=== PATIENT | female | born 1990 | race Caucasian/White ===

== ENCOUNTER 2018-12-06 08:44 | Emergency (ER) | payer OTHER ==
[~2018-12-06] VITALS: Ht 157.5 cm; Wt 79.4 kg
[2018-12-06 08:45] VITALS: TEMP 98.2
[2018-12-06 11:29] VITALS: BP 116/93; PULSE 80
== END 2018-12-06 11:30 | disposition home or self-care (01) ==
LOC: COL.ER 08:44
DX: F07.81 Postconcussional syndrome (principal); F32.9 Major depressive disorder, single episode, unspecified; F41.9 Anxiety disorder, unspecified; E11.9 Type 2 diabetes mellitus without complications; Z79.84 Long term (current) use of oral hypoglycemic drugs
CPT/HCPCS: J1200; J1885; J2765

== ENCOUNTER 2018-12-17 08:48 | Emergency (ER) | payer OTHER ==
[~2018-12-17] VITALS: Ht 157.5 cm; Wt 78.2 kg
[2018-12-17 08:54] VITALS: BP 134/88; TEMP 97.7
[2018-12-17] MEDS ORDERED: NOVOLOG 100U100 U/M1 SQ (09:57)
[2018-12-17] MEDS ORDERED: LANTUS100 U/ML SQ ×2 (09:57→09:58)
[2018-12-17] MEDS ORDERED: MULTI VITAMINS1 TAB PO (09:58)
[2018-12-17] MEDS ORDERED: MIRENA52 MG IY (10:02)
[2018-12-17 10:10] LABS: BASO # 0.1 (0.0-0.2); BASO % 0.7 % (0.0-2.0); EOS # 0.1 (0.0-0.7); EOS % 1.4 % (0-4.0); GRAN # 6.9 (1.4-6.5); GRAN % 68.4 % (42.2-75.2); HEMATOCRIT 45.8 % (37.0-47.0); HEMOGLOBIN 15.6 g/dl (12.5-16.0); LYMPH # 2.3 (1.2-3.4); LYMPH % 22.5 % (20.0-51.0); MEAN CELL VOLUME 85 fl (80.0-100.0); MEAN CORPUSCULAR HEMOGLOBIN 29 pg (27.0-31.0); MEAN CORPUSCULAR HGB CONC 34 g/dl (33.0-37.0); MEAN PLATELET VOLUME 11.1 fl (7.4-10.4); MONO # 0.7 (0.1-0.6); MONO % 6.7 % (1.7-9.3); PLATELET COUNT 368 K/mm3 (130-400); RED BLOOD COUNT 5.37 M/mm3 (4.10-5.30); REDCELL DISTRIBUTION WIDTH-CV 12.2 % (11.5-14.5)
[2018-12-17 10:21] LABS: ALBUMIN 4.5 gm/dL (3.5-5.0); BILIRUBIN,TOTAL 0.6 mg/dL (0.0-1.0); CALCIUM 9.6 mg/dL (8.4-10.2); CREATININE, serum 0.5 (0.52-1.25); POTASSIUM 3.8 mmol/L (3.4-5.0); TOTAL PROTEIN 8.2 gm/dL (6.4-8.2)
[2018-12-17 11:37] LABS: COLLECTION METHOD CLEAN CATCH
[2018-12-17 11:45] LABS: MUCOUS Present /lpf; PH 6 (5-8); URINE APPEARANCE Hazy; URINE BACTERIA Rare /hpf; URINE BILIRUBIN Negative (NEGATIVE); URINE BLOOD Negative (NEGATIVE); URINE COLOR Yellow; URINE GLUCOSE 3+ (NEGATIVE); URINE KETONE 1+ (NEGATIVE); URINE LEUKOCYTE ESTERASE 1+ (NEGATIVE); URINE NITRATE Negative (NEGATIVE); URINE PROTEIN(semi-quant) 2+ (NEGATIVE); URINE UROBILINOGEN Negative (NEGATIVE)
[2018-12-17] MEDS ORDERED: DIFLUCAN150 MG PO (12:27)
[2018-12-17] MEDS ORDERED: GLUCOPHAGE1000 MG PO (12:27)
[2018-12-17] MEDS ORDERED: MACROBID 1100 MG/CAP PO (12:28)
[2018-12-17 12:37] VITALS: PULSE 94
== END 2018-12-17 12:38 | disposition home or self-care (01) ==
LOC: COL.ER 08:48
PROVIDERS: Nurse Practitioner Primary Care
DX: B37.3 Candidiasis of vulva and vagina (principal); L30.4 Erythema intertrigo; N30.90 Cystitis, unspecified without hematuria; E11.9 Type 2 diabetes mellitus without complications; Z87.42 Personal history of other diseases of the female genital tract

== ENCOUNTER 2019-10-09 12:39 | Outpatient (RCR) | payer OTHER ==
[~2019-10-09 12:39] MED LIST: DIFLUCAN150 MG PO; GLUCOPHAGE1000 MG PO; LANTUS100 U/ML SQ; MACROBID 1100 MG/CAP PO; MIRENA52 MG IY; MULTI VITAMINS1 TAB PO; NOVOLOG 100U100 U/M1 SQ; PHENERGAN 25 TA25 MG PO; PRINIVIL5 MG PO; ZOFRAN 4MG T4 MG/TAB PO
== END 2019-10-28 12:39 | disposition home or self-care (01) ==
LOC: WSOH 12:39
DX: S29.012S Strain of muscle and tendon of back wall of thorax, sequela (principal); R16.0 Hepatomegaly, not elsewhere classified; E11.9 Type 2 diabetes mellitus without complications; F41.9 Anxiety disorder, unspecified; L40.9 Psoriasis, unspecified; Y99.0 Civilian activity done for income or pay

== ENCOUNTER → 2019-10-11 | Outpatient (CLI) | payer OTHER | LOC: COL.RAD 07:44 | DX: R10.11 Right upper quadrant pain (principal) | CPT/HCPCS: A9537; J2805 ==

== ENCOUNTER 2020-08-14 11:19 | Emergency (ER) | payer MEDICAID ==
[~2020-08-14] VITALS: Ht 157.5 cm; Wt 77.3 kg
[2020-08-14 11:26] VITALS: BP 123/85; TEMP 96.8
[2020-08-14 12:53] LABS: COLLECTION METHOD CLEAN CATCH
[2020-08-14 12:56] LABS: BASO # 0.1 (0.0-0.2); BASO % 0.6 % (0.0-2.0); EOS # 0.1 (0.0-0.7); EOS % 1.2 % (0-4.0); GRAN # 6.9 (1.4-6.5); GRAN % 70.4 % (42.2-75.2); HEMATOCRIT 43.2 % (37.0-47.0); HEMOGLOBIN 14.9 g/dl (12.5-16.0); LYMPH # 2.1 (1.2-3.4); LYMPH % 21.3 % (20.0-51.0); MEAN CELL VOLUME 84 fl (80.0-100.0); MEAN CORPUSCULAR HEMOGLOBIN 29 pg (27.0-31.0); MEAN CORPUSCULAR HGB CONC 35 g/dl (33.0-37.0); MONO # 0.6 (0.1-0.6); MONO % 6.3 % (1.7-9.3); PLATELET COUNT 324 K/mm3 (130-400); RED BLOOD COUNT 5.17 M/mm3 (4.10-5.30); REDCELL DISTRIBUTION WIDTH-CV 12.1 % (11.5-14.5)
[2020-08-14 13:01] LABS: MUCOUS Present /lpf; PH 5 (5-8); URINE APPEARANCE Cloudy; URINE BACTERIA Rare /hpf; URINE BILIRUBIN Negative (NEGATIVE); URINE BLOOD 3+ (NEGATIVE); URINE COLOR Yellow; URINE GLUCOSE 3+ (NEGATIVE); URINE KETONE Trace (NEGATIVE); URINE LEUKOCYTE ESTERASE 2+ (NEGATIVE); URINE NITRATE Negative (NEGATIVE); URINE PROTEIN(semi-quant) Negative (NEGATIVE); URINE UROBILINOGEN Negative (NEGATIVE)
[2020-08-14 13:08] LABS: ALBUMIN 4.2 gm/dL (3.5-5.0); BILIRUBIN,TOTAL 0.4 mg/dL (0.0-1.0); CALCIUM 9.6 mg/dL (8.4-10.2); CREATININE, serum 0.47 (0.52-1.25); POTASSIUM 3.4 mmol/L (3.4-5.0); TOTAL PROTEIN 7.4 gm/dL (6.4-8.2)
[2020-08-14] MEDS ORDERED: MACROBID 1100 MG/CAP PO (14:24)
[2020-08-14] MEDS ORDERED: DIFLUCAN150 MG PO (14:24)
[2020-08-14 14:33] VITALS: PULSE 97
== END 2020-08-14 14:33 | disposition home or self-care (01) ==
LOC: COL.ER 11:19
PROVIDERS: Nurse Practitioner
DX: O20.9 Hemorrhage in early pregnancy, unspecified (principal); O23.41 Unspecified infection of urinary tract in pregnancy, first trimester; B37.3 Candidiasis of vulva and vagina; E11.9 Type 2 diabetes mellitus without complications; Z88.6 Allergy status to analgesic agent; Z3A.00 Weeks of gestation of pregnancy not specified; Z79.84 Long term (current) use of oral hypoglycemic drugs

== ENCOUNTER 2021-02-01 15:40 | Emergency (ER) | payer MEDICAID ==
[~2021-02-01] VITALS: Ht 157.5 cm; Wt 75.0 kg
[2021-02-01 15:47] VITALS: BP 144/82; TEMP 98.2
[2021-02-01] MEDS ORDERED: NORCO 325 MG-51 TAB PO (16:09)
[2021-02-01 16:27] VITALS: PULSE 89
== END 2021-02-01 16:28 | disposition home or self-care (01) ==
LOC: COL.ER 15:40
DX: H60.91 Unspecified otitis externa, right ear (principal); E11.9 Type 2 diabetes mellitus without complications; Z88.6 Allergy status to analgesic agent; Z79.84 Long term (current) use of oral hypoglycemic drugs

== ENCOUNTER 2021-02-06 08:01 | Emergency (ER) | payer MEDICAID ==
[~2021-02-06] VITALS: Ht 157.5 cm; Wt 74.5 kg
[~2021-02-06 08:01] MED LIST changes: +NORCO 325 MG-51 TAB PO
[2021-02-06 08:11] VITALS: BP 115/79; TEMP 98.1
[2021-02-06] MEDS ORDERED: GLUCOPHAGE1000 MG PO (08:33)
[2021-02-06] MEDS ORDERED: NOVOLOG FLEX100 U/ML SQ (08:33)
[2021-02-06] MEDS ORDERED: LANTUS SOLOS100 U/ML SQ (08:35)
[2021-02-06] MEDS ORDERED: CIPRO 500MG TA500 MG PO (08:36)
[2021-02-06] MEDS ORDERED: NORCO 325 MG-51 TAB PO (08:36)
[2021-02-06 08:45] VITALS: PULSE 99
== END 2021-02-06 08:45 | disposition home or self-care (01) ==
LOC: COL.ER 08:01
DX: H60.91 Unspecified otitis externa, right ear (principal); E11.9 Type 2 diabetes mellitus without complications; Z79.84 Long term (current) use of oral hypoglycemic drugs

== ENCOUNTER 2021-08-08 09:25 | Emergency (ER) | payer MEDICAID ==
[~2021-08-08] VITALS: Ht 157.5 cm; Wt 76.8 kg
[~2021-08-08 09:25] MED LIST changes: +CIPRO 500MG TA500 MG PO; +LANTUS SOLOS100 U/ML SQ; +NOVOLOG FLEX100 U/ML SQ
[2021-08-08 09:38] VITALS: TEMP 97.1
[2021-08-08] MEDS ORDERED: CEPHALEXIN500 M1 PO (10:33)
--- NOTE | 2021-08-08 10:45 | NUR ---
Pt reports she is [address] Vickers and MFM. Pt seen in ED for concerns with an abscess. Pt denies any contractions, leaking of fluid or vaginal bleeding and reports normal movement. EFM and toco monitors started. Audible movement noted. No ctx per toco or pt's report.
[2021-08-08 10:55] VITALS: BP 110/63
[2021-08-08 11:16] VITALS: PULSE 95
== END 2021-08-08 11:16 | disposition home or self-care (01) ==
LOC: COL.ER 09:25
DX: O23.92 Unspecified genitourinary tract infection in pregnancy, second trimester (principal); L02.214 Cutaneous abscess of groin; O99.332 Smoking (tobacco) complicating pregnancy, second trimester; Z87.891 Personal history of nicotine dependence; Z3A.27 27 weeks gestation of pregnancy
CPT/HCPCS: J0696

== ENCOUNTER 2021-09-19 07:40 | Outpatient (CLI) | payer MEDICAID ==
[~2021-09-19] VITALS: Ht 157.5 cm; Wt 79.5 kg
[~2021-09-19 07:40] MED LIST changes: +CEPHALEXIN500 M1 PO
--- NOTE | 2021-09-19 08:00 | NUR ---
Pt arrived on unit ambulatory and with complaints of contractions since 0300 and nausea and vomiting this morning. Pt denies any leaking of fluid or vaginal bleeding and reports normal movement. EFM and toco monitors started. Vital signs WNL. SVE done 0-/-4. Dr. Munoz notifed of pt's arrival. See physican notification for details.
[2021-09-19] MEDS ORDERED: PRENATAL TABLET PO (08:16)
[2021-09-19] MEDS ORDERED: FLAGYL500 MG PO (08:17)
[2021-09-19 08:58] LABS: COLLECTION METHOD CLEAN CATCH
[2021-09-19] MEDS ORDERED: ZOLOFT 25MG25 MG PO (08:59)
[2021-09-19 09:00] VITALS: BP 155/79; PULSE 111; TEMP 98.3
[2021-09-19] MEDS ORDERED: HUMULIN N 10100 U/ML ×2 (09:04→09:05)
[2021-09-19 09:05] LABS: PH 5 (5-8); SQUAMOUS EPITHELIAL 0-2 /hpf (0-10); URINE APPEARANCE Clear (CLEAR/HAZY); URINE BACTERIA None Seen /hpf (NONE SEEN); URINE BILIRUBIN Negative (NEGATIVE); URINE BLOOD Negative (NEGATIVE); URINE COLOR Yellow (YELLOW); URINE GLUCOSE 3+ (NEGATIVE); URINE KETONE 2+ (NEGATIVE); URINE LEUKOCYTE ESTERASE Negative (NEGATIVE); URINE NITRATE Negative (NEGATIVE); URINE PROTEIN(semi-quant) Negative (NEGATIVE); URINE RBC 0-2 /hpf (0-2); URINE UROBILINOGEN Negative (NEGATIVE); URINE WBC None Seen /hpf (0-2)
[2021-09-19 09:09] LABS: BASO % 0.3 % (0.0-2.0); EOS % 0.4 % (0.0-4.0); GRAN # 5.3 K/mm3 (1.4-6.5); GRAN % 73.5 % (42.2-75.2); HEMOGLOBIN 12.5 g/dl (12.5-16.0); LYMPH # 1.2 K/mm3 (1.2-3.4); LYMPH % 16.9 % (20.0-51.0); MEAN CELL VOLUME 82 fl (80.0-100.0); MEAN CORPUSCULAR HEMOGLOBIN 29 pg (27-31); MEAN CORPUSCULAR HGB CONC 35 g/dl (33.0-37.0); MEAN PLATELET VOLUME 11.7 fl (7.4-10.4); MONO # 0.6 K/mm3 (0.1-0.6); MONO % 8.5 % (1.7-9.3); PLATELET COUNT 204 K/mm3 (130-400); RED BLOOD COUNT 4.31 M/mm3 (4.10-5.30); REDCELL DISTRIBUTION WIDTH-CV 13.3 % (11.5-14.5)
[2021-09-19 09:14] LABS: HEMATOCRIT 35.4 % (37.0-47.0)
[2021-09-19 09:30] LABS: BILIRUBIN,TOTAL 0.3 mg/dL (0.2-1.2); CALCIUM 8.3 mg/dL (8.4-10.2); CREATININE, serum 0.66 mg/dL (0.57-1.11); POTASSIUM 3.5 mmol/L (3.5-4.5); TOTAL PROTEIN 6.8 gm/dL (6.2-8.1)
[2021-09-19 09:35] VITALS: BP 109/58; PULSE 102
--- NOTE | 2021-09-19 09:35 | NUR ---
Discharge instructions and follow up care with return to L&D unit on 09/20 for second dose of betamethasone and NST reviewed with pt. Pt verbalized an understanding, agreed with the plan and states no questions or concerns at this time.
--- NOTE | 2021-09-19 09:50 | NUR ---
Extensive education and encouragement for use of insulin reviewed with pt. Pt verbalized an understanding and agreed with the plan. Pt discharged home ambulatory.
== END 2021-09-19 09:52 | disposition home or self-care (01) ==
LOC: LDRO 07:40
PROVIDERS: Student in an Organized Health Care Education/Training Program
DX: Z34.93 Encounter for supervision of normal pregnancy, unspecified, third trimester (principal); Z3A.33 33 weeks gestation of pregnancy
CPT/HCPCS: J0702; J2405; J7120

== ENCOUNTER 2021-09-20 08:53 | Outpatient (CLI) | payer MEDICAID ==
[~2021-09-20] VITALS: Ht 157.5 cm; Wt 79.4 kg
--- NOTE | 2021-09-20 08:45 | NUR ---
Presents to labor and delivery for non-stress test. heart monitor on, heart rate 140 with accelerations noted. States having a contraction every once in a while. Assessment done questions offered and answered. 0910 Dr. Frias called and let him know that patient here. Let him know that heart rate now in the 130s with accelerations noted with no decels. Also let him know that she is here for betamethasone injection. States she can go. 0957 Betamethasone injection 12 mg im given to left glueteal as ordered. 1015 Instructions given, verbalizes understanding. Dismissed to home, ambulatory, stable, alert.
[~2021-09-20 08:53] MED LIST changes: +FLAGYL500 MG PO; +HUMULIN N 10100 U/ML; +PRENATAL TABLET PO; +ZOLOFT 25MG25 MG PO
== END 2021-09-20 10:15 | disposition home or self-care (01) ==
LOC: LDRO 08:53
DX: O62.4 Hypertonic, incoordinate, and prolonged uterine contractions (principal); Z3A.33 33 weeks gestation of pregnancy
CPT/HCPCS: J0702

== ENCOUNTER 2021-09-28 23:21 | Outpatient (CLI) | payer MEDICAID ==
[~2021-09-28] VITALS: Ht 154.9 cm; Wt 79.5 kg
--- NOTE | 2021-09-28 23:30 | NUR ---
2330- PATIENT WHEELED ONTO UNIT. ORIENTATED TO ROOM AND CHANGED INTO CLEAN GOWN. PATIENT IS A AT 34.3 WHO PRESENTS WITH COMPLAINTS OF POSSIBLE SROM AT 2255 THIS EVENING AND CONTRACTIONS THAT ARE IRREGULAR BUT PAINFUL. DENIES BLEEDING, REPORTS GFM. 2336- EFM AND TOCO ON AND TRACING. VITALS TAKEN, ASSESSMENT COMPLETED. PLAN OF CARE DISCUSSED. PATIENT VERBALIZED UNDERSTANDING WITH NO FURTHER QUESTIONS. CALL LIGHT WITHIN REACH.
[2021-09-28 23:45] VITALS: BP 137/87; PULSE 105; TEMP 98.1
[2021-09-29 00:15] VITALS: BP 110/73; PULSE 93
[2021-09-29 00:45] VITALS: BP 115/71; PULSE 110
== END 2021-09-29 00:55 | disposition home or self-care (01) ==
LOC: LDRO 23:21
DX: O47.03 False labor before 37 completed weeks of gestation, third trimester (principal); O42.913 Preterm premature rupture of membranes, unspecified as to length of time between rupture and onset of labor, third trimester; Z3A.34 34 weeks gestation of pregnancy

== ENCOUNTER 2021-10-11 18:10 | Inpatient (IN) | payer MEDICAID ==
[~2021-10-11] VITALS: Ht 154.9 cm; Wt 79.5 kg
[2021-10-11 19:15] VITALS: BP 128/71; PULSE 125; TEMP 98.1
[2021-10-11 19:38] VITALS: PULSE 115
--- NOTE | 2021-10-11 19:45 | NUR ---
Pt here from home. Pt to room. Clean gown on. EFM and TOCO explained and applied. Pt denies contractions at this time. Reports contractions irregularly but nothing that is regular. Denies leaking of fluids or vaginal bleeding. Reports good movement. Plan of care explained to pt and questions answered. Admitting blood sugar is 283. at nurses station and updated on pts current VS and BS. to enter orders and call for hospitalist consult.
[2021-10-11 20:00] VITALS: BP 128/71; PULSE 125; TEMP 98.1
[2021-10-11] MEDS ORDERED: HUMULIN N 10100 U/ML SQ ×2 (20:08→20:09)
[2021-10-11 20:30] LABS: BASO % 0.3 % (0.0-2.0); EOS % 0.5 % (0.0-4.0); GRAN # 4.5 K/mm3 (1.4-6.5); GRAN % 68.9 % (42.2-75.2); HEMATOCRIT 35.3 % (37.0-47.0); HEMOGLOBIN 12.2 g/dl (12.5-16.0); LYMPH # 1.4 K/mm3 (1.2-3.4); LYMPH % 20.9 % (20.0-51.0); MEAN CELL VOLUME 82 fl (80.0-100.0); MEAN CORPUSCULAR HEMOGLOBIN 28 pg (27-31); MEAN CORPUSCULAR HGB CONC 35 g/dl (33.0-37.0); MEAN PLATELET VOLUME 11.7 fl (7.4-10.4); MONO # 0.6 K/mm3 (0.1-0.6); MONO % 9.1 % (1.7-9.3); PLATELET COUNT 206 K/mm3 (130-400); RED BLOOD COUNT 4.32 M/mm3 (4.10-5.30); REDCELL DISTRIBUTION WIDTH-CV 13.4 % (11.5-14.5)
[2021-10-11 20:44] LABS: ALBUMIN 2.8 gm/dL (3.5-5.0); BILIRUBIN,TOTAL 0.4 mg/dL (0.2-1.2); CALCIUM 9.7 mg/dL (8.4-10.2); CREATININE, serum 0.65 mg/dL (0.57-1.11); POTASSIUM 3.5 mmol/L (3.5-4.5)
[2021-10-12 00:15] VITALS: BP 123/79; PULSE 117; TEMP 98
[2021-10-12 04:10] VITALS: BP 113/78; PULSE 89; TEMP 98.4
[2021-10-12 07:14] VITALS: BP 110/71; PULSE 97; TEMP 98.4
--- NOTE | 2021-10-12 10:19 | NUR ---
Initial visit; Patient thanked [employer] for stopping and wishing her well and offering God's blessings.
[2021-10-12 11:50] VITALS: BP 118/73; PULSE 100; TEMP 98.6
[2021-10-12 18:30] VITALS: BP 134/77; PULSE 129; TEMP 98.3
[2021-10-12 18:50] VITALS: BP 116/72; PULSE 121
--- NOTE | 2021-10-12 20:02 | NUR ---
Transport here to transfer pt. Pt ambualtory to [facility]. Report given to transport nurse. Pt off unit with team.
== END 2021-10-12 20:02 | disposition other institution (70) | DRG 831 ==
LOC: OB 18:10
PROVIDERS: ADMIT Obstetrics & Gynecology
DX: O24.113 Pre-existing type 2 diabetes mellitus, in pregnancy, third trimester (principal); O75.3 Other infection during labor; O24.12 Pre-existing type 2 diabetes mellitus, in childbirth; E11.65 Type 2 diabetes mellitus with hyperglycemia; O36.5930 Maternal care for other known or suspected poor fetal growth, third trimester, not applicable or unspecified; O99.343 Other mental disorders complicating pregnancy, third trimester; F32.A Depression, unspecified; F41.9 Anxiety disorder, unspecified; O99.891 Other specified diseases and conditions complicating pregnancy; B37.3 Candidiasis of vulva and vagina; L40.9 Psoriasis, unspecified; Z3A.36 36 weeks gestation of pregnancy; Z79.4 Long term (current) use of insulin
CPT/HCPCS: 99222; 99233-AI; G0008; G0378; G0379; J1815

== ENCOUNTER 2022-04-07 23:38 | Observation (INO) | payer MEDICAID ==
[~2022-04-07] VITALS: Ht 157.5 cm; Wt 78.2 kg
[~2022-04-07 23:38] MED LIST changes: +HUMULIN N 10100 U/ML SQ
[2022-04-07 23:50] LABS: BASO # 0.1 K/mm3 (0.0-0.2); BASO % 0.7 % (0.0-2.0); EOS # 0.2 K/mm3 (0.0-0.7); EOS % 2.5 % (0.0-4.0); GRAN # 4.5 K/mm3 (1.4-6.5); GRAN % 54.1 % (42.2-75.2); HEMOGLOBIN 12.7 g/dl (12.5-16.0); LYMPH # 2.9 K/mm3 (1.2-3.4); MEAN CELL VOLUME 82 fl (80.0-100.0); MEAN CORPUSCULAR HEMOGLOBIN 29 pg (27-31); MEAN CORPUSCULAR HGB CONC 35 g/dl (33.0-37.0); MEAN PLATELET VOLUME 11.3 fl (7.4-10.4); MONO # 0.6 K/mm3 (0.1-0.6); MONO % 7.5 % (1.7-9.3); PLATELET COUNT 302 K/mm3 (130-400); REDCELL DISTRIBUTION WIDTH-CV 12.3 % (11.5-14.5)
[2022-04-08] VITALS (13 sets, daily range): BP systolic 110–136; BP diastolic 63–80; PULSE 70–123; TEMP 97.8–98.7
[2022-04-08 00:10] LABS: ALBUMIN 3.4 gm/dL (3.5-5.0); BILIRUBIN,TOTAL 0.3 mg/dL (0.2-1.2); CALCIUM 8.5 mg/dL (8.4-10.2); CREATININE, serum 0.78 mg/dL (0.57-1.11); POTASSIUM 4.1 mmol/L (3.5-4.5); TOTAL PROTEIN 6.3 gm/dL (6.2-8.1)
[2022-04-08] MEDS ORDERED: IBU600 MG PO (02:45)
--- NOTE | 2022-04-08 07:05 | NUR ---
NOTIFIED OF BG 404. 12U INSULIN ADMINISTERED. VITAL SIGNS STABLE. LOCHIA SCANT. PT REPORTS SHE IS IN BETWEEN PCP'S AND HAS NOONE TO MANAGE HER INSULIN/DIABETES MANAGEMENT. PER , PLACE A HOSPITALIST CONSULT TO HELP WITH DC PLANNING FOR BG MANAGEMENT.
--- NOTE | 2022-04-08 07:10 | NUR ---
(HOSPITALIST) NOTIFIED AT THIS TIME OF CONSULT. PER VORB, SHE STATES SHE WILL BE BY TO ROUND ON PATIENT MID-LATE AFTERNOON. NO NEW ORDERS AT THIS TIME
--- NOTE | 2022-04-08 07:59 | NUR ---
PT REQUESTING TO DC HOME AND KIDS ARE "DOWNSTAIRS WAITING." THIS NURSE EDUCATED PT ON IMPORTANCE OF PENDING HOSPITALIST CONSULT TO HELP REGULATE HER BLOOD SUGARS AND MANAGE HER DISCHARGE INSULIN ORDERS WHILE SHE IS "IN BETWEEN" PCP'S. PT STATES "I REALLY WANT TO GO, AND NEED TO. I CAN CALL AND GET A NEW PCP NOW BEFORE I LEAVE THE BUILDING IF THAT WILL HELP, AND HAVE A FOLLOW UP APPOINTMENT MADE." THIS NURSE WILL REPORT PT CONCERNS TO .
--- NOTE | 2022-04-08 08:16 | NUR ---
PT AT [facility], STATES SHE HAS A FOLLOW UP APPOINTMENT MADE FOR 04/14 @ 1100 WITH AT [facility]. PT STATES SHE HAS MANAGED HER DIABETES FOR 13 YEARS, AND KNOWS HOW TO REGULATE HER CURRENT INSULIN ORDERS TO GET HER SUGARS UNDER CONTROL, SHE HAS JUST BEEN OVERLY STRESS AND NONCOMPLIANT DUE TO "BEING , THEN GETTING , AND NOW MISCARRYING." NOTIFIED. VORB THAT PT MAY DC HOME.
--- NOTE | 2022-04-08 08:45 | NUR ---
ALL DC PAPERWORK AND FOLLOW UP APPOINTMENTS REVIEWED IN FULL. REQUESTS PT TO CALL [facility] FOR 2 WEEK FOLLOW UP APPOINTMENT. PT AGREEABLE. PCP FOLLOW UP SCHEDULED FOR 04/14.
--- NOTE | 2022-04-08 09:00 | NUR ---
Initial visit; Patient received a phone call as Morning Babysitter began to welcome her. Morning Babysitter cut her welcome short and offered God's blessings and a "get well" message.
== END 2022-04-08 08:45 | disposition home or self-care (01) ==
LOC: COL.ER 23:38 → OB 04-08 01:18
PROVIDERS: Nurse Practitioner Primary Care; ADMIT Obstetrics & Gynecology
DX: O03.4 Incomplete spontaneous abortion without complication (principal); E11.65 Type 2 diabetes mellitus with hyperglycemia; R00.0 Tachycardia, unspecified; Z79.4 Long term (current) use of insulin
CPT/HCPCS: J1815; J2405; J2704; J3010; J7030